=== PATIENT | female | born 1990 | race Caucasian/White ===

== ENCOUNTER 2019-02-19 03:35 | Emergency (ER) | payer OTHER ==
[2019-02-19] MEDS ORDERED: Sodium Chloride 0.9% 1,000 ML IV SCH ×2 (04:15)
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
[2019-02-19 07:56] VITALS: BP 116/71
== END 2019-02-19 11:31 | disposition home or self-care (01) ==
LOC: JP.ED 03:35
DX: R45.851 Suicidal ideations (principal); F17.210 Nicotine dependence, cigarettes, uncomplicated; F41.9 Anxiety disorder, unspecified; F32.9 Major depressive disorder, single episode, unspecified; Z79.899 Other long term (current) drug therapy
CPT/HCPCS: 36415; 80053; 80305; 81001; 85025; 96360; 96361; 99284; G0480; J7030